=== PATIENT | female | born 1945 | race Caucasian/White ===

== ENCOUNTER 2019-11-25 13:50 | Outpatient (CLI) | payer MEDICARE, MEDICAID, SELFPAY ==
--- NOTE | 2019-11-25 14:15 | USCV_ITS ---
Gabrielle Bravo Age: 74 Gender: F : 1945 Exam Date: 11/25/2019 14:13 Ordering Phys: Shanita Agustin MD ([email or web address]) Technologist: Diane Lima Exam Location: [facility] – [place] Indication: STENOSIS Risk Factors: Previous Vascular Surgery: Right Brachial BP: / Left Brachial BP: / Right Left Velocity (cm/s) Spectral Plaque Velocity (cm/s) Spectral Plaque Syst/Diast Broadening Syst/Diast Broadening 51.60/ 11.10 Prox CCA 46.40 / 9.00 27.70/ 8.60 Mid CCA 41.20 / 9.50 20.30/ 10.50 Distal CCA 23.20 / 6.60 33.20/ 11.10 Prox ICA 59.60 / 15.10 35.70/ 12.30 Mid ICA 82.30 / 24.60 42.40/ 14.10 Distal ICA 53.70 / 14.50 104.00 ECA 94.60 1.53 ICA/CCA 2.00 Antegrade Vertebral Antegrade 32.60/ 8.00 cm/s 54.20/ 8.90 cm/s Tri Subclavian Tri 62.90 64.30 FINDINGS Moderate heterogeneous plaques at the bifurcations and proximal internal carotid arteries bilaterally. Antegrade flow in the vertebral arteries bilaterally. Normal Doppler flow velocities in the external carotid arteries bilaterally CONCLUSIONS Moderate heterogeneous plaques at the bifurcations and proximal internal carotid arteries bilaterallywith velocity elevation consistent with 16-49% stenosis. Dr Shanita Agustin MD [facility] (Electronically Signed) Final Date: 26 November 2019 20:51 S
== END 2019-11-25 13:51 | disposition home or self-care (01) ==
LOC: RAD 13:57
PROVIDERS: Family Provider Family Medicine; PCP Family Medicine; Visit Provider Internal Medicine Cardiovascular Disease
DX: I65.23 Occlusion and stenosis of bilateral carotid arteries (principal)
CPT/HCPCS: 93880

== ENCOUNTER 2020-10-04 14:01 | Outpatient (CLI) | payer MEDICARE, MEDICAID, SELFPAY ==
--- NOTE | 2020-10-04 14:09 | MM_ITS ---
WS: [id number] BILATERAL SCREENING DIGITAL MAMMOGRAM WITH CAD HISTORY: SCREENING COMPARISON: 12/12/2018, 07/05/2017, and 07/12/2017 Bilateral CC and MLO views submitted. Computer aided detection analyzed. Breast composition: There are scattered areas of fibroglandular density. No suspicious masses, microc alcifications or architectural distortion. Asymmetries in the retroareolar regions are stable. Stable lymph nodes towards the axillary tails. MM/[id number] IMPRESSION: BI-RADS: 2-Benign FOLLOW UP: 1 Year Follow-up
== END 2020-10-04 14:02 | disposition home or self-care (01) ==
PROVIDERS: PCP Family Medicine; Visit Provider Family Medicine
DX: Z12.31 Encounter for screening mammogram for malignant neoplasm of breast (principal)
CPT/HCPCS: 77067

== ENCOUNTER 2021-12-29 10:48 | Outpatient (CLI) | payer MEDICARE, MEDICAID, SELFPAY ==
--- NOTE | 2021-12-29 11:23 | XR_ITS ---
WS: [id number] XR chest 2V* [id number] REASON FOR EXAM: H/O positive ppd FINDINGS: Moderate tortuosity the thoracic aorta without aneurysmal dilatation. Normal heart size. Calcified gr anulomatous disease in both hemithoraces, centrally and peripherally. No acute pulmonary parenchymal or pleural abnormality. No upper lobe inflammatory process identified. Granulomatous abnormalities appear unchanged compared to 03/04/2010. 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 Total left shoulder arthroplasty. Arthropathy and alignment of the right shoulder joint compatible with complete rotator cuff tear. XR/XR chest 2V* [id number] IMPRESSION: No acute chest abnormality.
== END 2021-12-29 10:49 | disposition home or self-care (01) ==
LOC: RAD 11:06
PROVIDERS: PCP Family Medicine; Visit Provider Family Medicine
DX: Z86.11 Personal history of tuberculosis (principal)
CPT/HCPCS: 71046